=== PATIENT | male | born 1935 | race Caucasian/White ===

== ENCOUNTER 2017-12-11 00:14 | Inpatient (IN) | payer MEDICARE ==
[~2017-12-11] VITALS: Ht 179.1 cm; Wt 88.0 kg
--- NOTE | 2017-12-11 00:14 | NUR ---
[id number] FROM HOME C/O L KNEE PAIN X 1 WEEK. NOTED L KNEE SWELLING W/REDNESS AND HOT TO TOUCH. VSS NAD A/OX4 ABLE TO MAKE NEEDS KNOWN. WILL CONTINUE TO MONITOR FOR ANY CHANGES DURING THE SHIFT.
--- NOTE | 2017-12-11 00:15 | NUR ---
ER MD ENGLISH AT BEDSIDE
[2017-12-11] MEDS ORDERED: MORPHINE SULFATE INJ 4 MG/ML DISP.SYRIN ONE ×2 (01:06→01:47)
[2017-12-11] MEDS ORDERED: ONDANSETRON HCL/PF 4 MG/2 ML VIAL ONE (01:06)
[2017-12-11] MEDS ORDERED: VANCOMYCIN 1 GM VIAL ONE (01:06)
[2017-12-11] MEDS ORDERED: MORPHINE SULFATE INJ 2 MG/ML DISP.SYRIN IV ONE ×2 (01:30→02:00)
[2017-12-11] MEDS ORDERED: IV NS 0.9% 500 ML BAG IV ONE (01:30)
[2017-12-11] MEDS ORDERED: VANCOMYCIN 1 GM in IV D5W 250 ML IV ONE (01:30)
[2017-12-11] MEDS ORDERED: ONDANSETRON HCL/PF 4 MG/2 ML VIAL IVP ONE (01:30)
[2017-12-11 01:37] LABS: BASOPHILS % (AUTO) 0.3 % (0.0-2.0); EOSINOPHILS % (AUTO) 1.2 % (0.0-6.0); HEMATOCRIT 41 % (39-51); HEMOGLOBIN 13.3 g/dL (13.5-17.5); LYMPHOCYTES % (AUTO) 12.3 % (20.0-44.0); MEAN CORPUSCULAR HGB CONC 33 g/dl (31.0-36.0); MEAN CORPUSCULAR VOLUME 95 fL (80-96); NEUTROPHILS # (AUTO) 6.1 /CMM (1.8-8.9); NEUTROPHILS % (AUTO) 74.2 % (43.0-81.0); PLATELET COUNT (AUTO) 200 /CMM (150-450); RDW COEFFICIENT OF VARIATION 14.6 (11.5-15.0); RED BLOOD CELL COUNT(AUTO) 4.28 MIL/uL (4.5-6.0); WHITE BLOOD COUNT (AUTO) 8.3 K/uL (4.3-11.0)
[2017-12-11 01:39] LABS: CALCIUM, SERUM 8.7 mg/dL (8.5-10.1); CARBON DIOXIDE 30 mmol/L (21-32); CHLORIDE 104 mmol/L (98-107); CREATININE 1.2 mg/dL (0.6-1.3); GLUCOSE 128 mg/dL (74-106); POTASSIUM 4.5 mmol/L (3.5-5.1); SODIUM SERUM 139 mmol/L (136-145); UREA NITROGEN, BLOOD 25 mg/dL (7-18)
[2017-12-11 01:43] LABS: INR 0.99 (0.87-1.13)
[2017-12-11 01:46] LABS: ALANINE AMINOTRANSFERASE 31 U/L (12-78); ALBUMIN 3.1 g/dL (3.4-5.0); ALKALINE PHOSPHATASE 138 U/L (46-116); ASPARTATE AMINOTRANSFERASE 29 U/L (15-37); BILIRUBIN,DIRECT 0.1 mg/dL (0.0-0.2); BILIRUBIN,TOTAL 0.6 mg/dL (0.2-1.0); TOTAL PROTEIN, SERUM 7.5 g/dL (6.4-8.2)
--- NOTE | 2017-12-11 02:02 | NUR ---
ms bed 114.2
--- NOTE | 2017-12-11 02:13 | NUR ---
REPORT GIVEN TO AG
--- NOTE | 2017-12-11 02:15 | NUR ---
SURGICAL CODER AT BEDSIDE
[2017-12-11] MEDS ORDERED: Z GUARD REMEDY 2 OZ OINT TP PRN (02:30)
[2017-12-11] MEDS ORDERED: MAGNESIUM HYDROXIDE 30 ML UDC PO PRN (02:30)
[2017-12-11] MEDS ORDERED: MAG HYDROX/AL HYDROX/SIMETH 30 ML UDC PO PRN (02:30)
[2017-12-11] MEDS ORDERED: HYDROCODONE/APAP 5/325MG 1 EACH TABLET PO PRN (02:30)
[2017-12-11] MEDS ORDERED: ACETAMINOPHEN 325 MG TABLET PO PRN (02:30)
[2017-12-11] MEDS ORDERED: ONDANSETRON HCL/PF 4 MG/2 ML VIAL IVP PRN (02:30)
[2017-12-11] MEDS ORDERED: MORPHINE SULFATE INJ 2 MG/ML DISP.SYRIN IV PRN (02:30)
[2017-12-11] MEDS ORDERED: METO-356 PO (02:44)
[2017-12-11] MEDS ORDERED: ASPI-605 PO (02:44)
[2017-12-11] MEDS ORDERED: TAMS0.4C34 PO (02:44)
[2017-12-11] MEDS ORDERED: FENT1PAT5 TP (02:44)
[2017-12-11] MEDS ORDERED: DULO20CA PO (02:44)
[2017-12-11] MEDS ORDERED: FLUT16SP BNOSTRILS (02:44)
[2017-12-11] MEDS ORDERED: LISI-607 PO (02:44)
[2017-12-11] MEDS ORDERED: FURO-145 PO (02:44)
[2017-12-11] MEDS ORDERED: MELA3TAB PO (02:44)
[2017-12-11] MEDS ORDERED: BACL10TA PO (02:44)
[2017-12-11] MEDS ORDERED: ATOR80TA PO (02:44)
--- NOTE | 2017-12-11 03:00 | NUR ---
RN ADMITTING NOTES Received patient from ER. Patient being admitted for Dx: Cellulitis. Upon assessment, patient's L Knee is noted to be markedly Reddened and swollen and hot to touch; when compared to the R knee. Patient complains of 10/10 pain on L leg with movement, decreased ROM. Circulation and sensation intact. Orders noted and carried out. Skin assessment done, pictures taken and filed in chart. belonging's checked. Oriented patient on unit protocols. updated patient and his son, Javed, with plan of care. questions answered to best of knowledge. call light in reach.
[2017-12-11] MEDS: IV NS 0.9% 1,000 ML IV PRN ×2 (03:22→20:34)
[2017-12-11 03:30] VITALS: BP 145/93
--- NOTE | 2017-12-11 03:30 | NUR ---
RN NOTE - CODE STATUS Admitted with Son, Javed, at bedside. patient reports he has an advance directive indicating wishes to be DNI. Confirmed with Javed, who is the primary care analyst of the patient. Javed to bring a copy of the patient's advance directive. Tel #: .
[2017-12-11] MEDS ORDERED: TRAM50TA2 PO (03:55)
[2017-12-11] MEDS ORDERED: VANCOMYCIN 1 GM in IV NS 0.9% 250 ML IV SCH (04:00)
[2017-12-11 04:11] LABS: APPEARANCE,URINE CLEAR (CLEAR); BILIRUBIN,URINE NEGATIVE (NEGATIVE); BLOOD, URINE TRACE Ery/uL (NEGATIVE); COLOR,URINE YELLOW (YELLOW); KETONES,URINE NEGATIVE (NEGATIVE); LEUKOCYTE ESTERASE ,URINE NEGATIVE (NEGATIVE); NITRITE, URINE NEGATIVE (NEGATIVE); PH,URINE 5.5 (5.0-8.0); PROTEIN,URINE NEGATIVE (NEGATIVE); UGLUCOSE NEGATIVE (NEGATIVE); UROBILINOGEN,URINE 0.2 EU/dL (0.2)
[2017-12-11 04:30] LABS: BACTERIA,URINE None seen /HPF (None Seen); MUCUS,URINE Few /LPF (None Seen); SQUAMOUS EPITHELIAL CELL,UR Few /HPF (None Seen); WBC,URINE 0-2 /HPF (0-3)
[2017-12-11] MEDS ORDERED: PIPERACILLIN /TAZOBACTAM 3.375 G VIAL IV ONE (05:16)
[2017-12-11] MEDS: PIPERACILLIN /TAZOBACTAM 3.375 G in IV NS 0.9% 50 ML IV SCH ×4 (06:01→23:31)
--- NOTE | 2017-12-11 06:35 | NUR ---
RN NOTE NO DISTRESS. REMAINS ST AT 104. SLEEPING COMFORTABLY AT THIS TIME. IVF AND ATB ORDERED. NO CHANGES. CALL LIGHT IN REACH. WILL ENDORSE ACCORDINGLY FOR CONTINUITY OF CARE.
[2017-12-11] MEDS ORDERED: FEE PK DOSING 1 MIN EA MC ONE (06:49)
--- NOTE | 2017-12-11 07:00 | NUR ---
RN NOTES RECEIVED PT ON BED , A/Ox4, RESPIRATION EVEN AND UNLABORED, ON RA , NO SOB NOTED, ON TELE HR IN 110'S, ST , NS AT 75CC/HR RUNNING VIA L FA IV SITE G 18, SITE CDI, SR UP x3, CALL LIGHT WITHIN EASY REACH, BED LOCKED AND IN LOWEST POSITION , CONTINUE TO MONITOR .
[2017-12-11 08:00] VITALS: BP 111/79
[2017-12-11] MEDS: HYDROCODONE/APAP 10/325MG 1 EA TABLET PO PRN ×3 (08:05→19:52)
[2017-12-11] MEDS: ENOXAPARIN SODIUM 40 MG/0.4 ML DISP.SYRIN SQ SCH (08:05)
[2017-12-11] MEDS: DOCUSATE SODIUM 100 MG CAPSULE PO SCH ×2 (08:05→16:37)
[2017-12-11] MEDS: PANTOPRAZOLE 40 MG TABLET.DR PO SCH (08:06)
--- NOTE | 2017-12-11 12:00 | NUR ---
RN NOTES VSS STABLE , PT AT REST , CONTINUE TO MONITOR .
[2017-12-11 16:00] VITALS: BP 120/69
[2017-12-11] MEDS: LACTOBACILLUS RHAMNOSUS GG 1 EACH CAP.SPRINK PO SCH (16:38)
--- NOTE | 2017-12-11 18:19 | NUR ---
RN NOTES IVF NS AT 75CC/HR RUNNING VIA L FA IV SITE , VSS STABLE , CALL LIGHT WITHIN EASY REACH, WILL ENDOSE TO FLIGHT TEST SHOP MECHANIC NURSE FOR LINSEY .
--- NOTE | 2017-12-11 19:15 | NUR ---
COMMERCIAL ESCROW ASSISTANT OPENING NOTES RECEIVED PT IN BED, ALERT AND ORIENTED X 3, PT'S SON, DORITA AT BEDSIDE. PT NOTED WITH NO SOB, BREATHING EVEN AND UNLABORED AND IN NO ACUTE DISTRESS AT THIS TIME. PT IS RECEIVING IVF ORDERED. ALL PATIENT'S NEEDS ATTENDED TO AT THIS TIME. PLACED CALL LIGHT WITHIN EASY REACH. WILL CONTINUE TO MONITOR PT.
--- NOTE | 2017-12-11 19:25 | NUR ---
RN NOTES PATIENT IS ON TELE MONITORING WITH ST @ 111 BPM. IN NO ACUTE DISTRESS.
[2017-12-11] MEDS ORDERED: TRAMADOL HCL 50 MG TABLET PO PRN (19:30)
[2017-12-11] MEDS: VANCOMYCIN 1 GM in IV D5W 250 ML IV SCH (19:52)
[2017-12-11 20:00] VITALS: BP 121/77
[2017-12-11] MEDS: MORPHINE SULFATE INJ 4 MG/ML DISP.SYRIN IV PRN (22:31)
[2017-12-12] VITALS: BP 125/74
[2017-12-12 04:00] VITALS: BP 129/80
[2017-12-12] MEDS: PIPERACILLIN /TAZOBACTAM 3.375 G in IV NS 0.9% 50 ML IV SCH ×4 (05:18→23:49)
--- NOTE | 2017-12-12 06:39 | NUR ---
SET UP MECHANIC STAMPING MACHINES CLOSING NOTES PT IN BED, ASLEEP BUT EASILY AROUSABLE. ALERT AND ORIENTED X 4, NO SOB NOTED, BREATHING EVEN AND UNLABORED AND IN NO ACUTE DISTRESS. PT SLEPT WELL, DENIES PAIN AT THIS TIME. ON TELE MONITORING AND NOTED WITH ST @ 110s. ALL PATIENT'S NEEDS ATTENDED TO. IVF CONTINUES TO INFUSE VIA IV PERIPHERAL LINE ON LFA G#18, INFUSING WELL. PLACED CALL LIGHT WITHIN EASY REACH. BED IN LOW POSITION AND LOCKED IN PLACE. WILL ENDORSE TO AM SHIFT NURSE FOR CONTINUITY OF CARE.
[2017-12-12] MEDS: PANTOPRAZOLE 40 MG TABLET.DR PO SCH (06:41)
--- NOTE | 2017-12-12 07:00 | NUR ---
CHARGE PREPARATION TECHNICIAN INITIAL NOTES RECEIVED PT FROM PM NURSE, PT RESTING IN BED ASLEEP, A&O X4 SLOVENIAN SPEAKING, ON RA SAT ABOVE 94%, NO SOB OR ACUTE DISTRESS, ON TELE WED ST WITH HR 110, LT FA 18 G IV RUNNING NS @ 75 ML/HR NO INFILTRATION NOTED, ALL SAFETY MEASURES INITIATED, WILL CONTINUE TO MONITOR.
[2017-12-12 07:02] LABS: BASOPHILS % (AUTO) 0.7 % (0.0-2.0); EOSINOPHILS % (AUTO) 4.4 % (0.0-6.0); HEMATOCRIT 35 % (39-51); HEMOGLOBIN 11.9 g/dL (13.5-17.5); LYMPHOCYTES % (AUTO) 17.2 % (20.0-44.0); MEAN CORPUSCULAR HGB CONC 34 g/dl (31.0-36.0); MEAN CORPUSCULAR VOLUME 95 fL (80-96); MONOCYTES # (AUTO) 0.8 /CMM (0.1-1.30); MONOCYTES % (AUTO) 12.8 % (2.0-12.0); NEUTROPHILS # (AUTO) 3.9 /CMM (1.8-8.9); NEUTROPHILS % (AUTO) 64.9 % (43.0-81.0); PLATELET COUNT (AUTO) 187 /CMM (150-450); RDW COEFFICIENT OF VARIATION 14.9 (11.5-15.0); RED BLOOD CELL COUNT(AUTO) 3.68 MIL/uL (4.5-6.0)
[2017-12-12 07:17] LABS: CALCIUM, SERUM 8.2 mg/dL (8.5-10.1); CARBON DIOXIDE 27 mmol/L (21-32); CHLORIDE 108 mmol/L (98-107); CREATININE 1.2 mg/dL (0.6-1.3); GLUCOSE 118 mg/dL (74-106); MAGNESIUM 1.8 mg/dL (1.8-2.4); PHOSPHORUS 4.2 mg/dL (2.5-4.9); POTASSIUM 4.6 mmol/L (3.5-5.1); SODIUM SERUM 142 mmol/L (136-145); UREA NITROGEN, BLOOD 24 mg/dL (7-18)
[2017-12-12 07:25] LABS: CHOLESTEROL 105 mg/dL (<200); HDL CHOLESTEROL 48 mg/dL (40-60); LDL 48 mg/dL (0-99); THYROID STIMULATING HORMONE 3.078 uIU/mL (0.358-3.74); TRIGLYCERIDES 57 mg/dL (30-150)
[2017-12-12 08:00] VITALS: BP 148/95
[2017-12-12] MEDS: BACLOFEN (10 MG) 10 MG TABLET PO SCH ×3 (09:00→16:08)
[2017-12-12] MEDS: FLUTICASONE PROPIONATE 16 GM BOTTLE NS SCH (09:05)
[2017-12-12] MEDS: ENOXAPARIN SODIUM 40 MG/0.4 ML DISP.SYRIN SQ SCH (09:06)
[2017-12-12] MEDS: LACTOBACILLUS RHAMNOSUS GG 1 EACH CAP.SPRINK PO SCH ×2 (09:06→16:59)
[2017-12-12] MEDS: DULOXETINE HCL 20 MG CAPSULE.DR PO SCH (09:07)
[2017-12-12] MEDS: TAMSULOSIN 0.4 MG CAP.SR.24H PO SCH (09:07)
[2017-12-12] MEDS: ASPIRIN EC 81 MG TABLET.DR PO SCH (09:07)
[2017-12-12] MEDS: DOCUSATE SODIUM 100 MG CAPSULE PO SCH ×2 (09:07→16:59)
[2017-12-12] MEDS: LISINOPRIL (5MG) 5 MG TABLET PO SCH (09:08)
[2017-12-12] MEDS: METOPROLOL SUCCINATE 25 MG TAB.SR.24H PO SCH (09:08)
--- NOTE | 2017-12-12 10:16 | NUR ---
BRUSHER WARP NOTES SPOKE WITH DR MAYNARD AND STATED NO NEED FOR WOUND CONSULT SINCE LT KNEE HAS NO DRAINAGE, WILL CONTINUE CARE.
[2017-12-12 12:00] VITALS: BP 146/87
[2017-12-12] MEDS: VANCOMYCIN 1 GM in IV D5W 250 ML IV SCH (14:24)
[2017-12-12 16:00] VITALS: BP 120/75
--- NOTE | 2017-12-12 18:43 | NUR ---
DRAFTER MARINE ENDING NOTES PT RESTING IN BED, NO ACUTE CHANGES NOTED, STATED PAIN 4/10 AND MANAGEABLE, NO DESIRE FOR PAIN MEDS, ON TELE WED ST, USES BED SIDE COMMODE AND URINAL, ABLE TO SIT UP IN BED, IV SITE INTACT NO INFILTRATION NOTED. ALL SAFETY MEASURES INITIATED, BED BATH PROVIDED,ALL DUE MEDS GIVEN, WILL ENDORSE TO PM NURSE.
[2017-12-12] MEDS: HYDROCODONE/APAP 10/325MG 1 EA TABLET PO PRN (19:47)
[2017-12-12 20:00] VITALS: BP 143/76
[2017-12-12] MEDS: MORPHINE SULFATE INJ 4 MG/ML DISP.SYRIN IV PRN (23:55)
[2017-12-13] VITALS (8 sets, daily range): BP systolic 123–154; BP diastolic 53–88
[2017-12-13] MEDS: PIPERACILLIN /TAZOBACTAM 3.375 G in IV NS 0.9% 50 ML IV SCH ×2 (05:12→12:56)
--- NOTE | 2017-12-13 07:15 | NUR ---
FORMULA WEIGHER INITIAL NOTES RECEIVED REPORT AND PT FROM PM NURSE. PT RESTING IN BED WITH NO S/S OF ACUTE DISTRESS OR SOB AT THIS TIME, A&O X4 PORTUGUESE SPEAKING, ON RA SAT ABOVE 94%, PAIN 5/10 TOLERABLE AT THIS TIME, ON TELE Wed WITH HR 110, LT FA 18G IV PATENT AND INTACT NO INFILTRATION NOTED, ALL SAFETY MEASURES INITIATED, WILL CONTINUE TO MONITOR.
--- NOTE | 2017-12-13 07:16 | NUR ---
RN NOTE PATIENT RESTED WELL AT NIGHT, PAIN IS WELL MANAGED WITH THE PAIN MEDICATIONS, NO DISTRESS NOTED, ON ROOM AIR, ALL SAFETY MEASURES TAKEN, WILL ENDORSE TO AM SHIFT FOR LINSEY
[2017-12-13 07:48] LABS: CALCIUM, SERUM 8.9 mg/dL (8.5-10.1); CARBON DIOXIDE 30 mmol/L (21-32); CHLORIDE 107 mmol/L (98-107); CREATININE 1.3 mg/dL (0.6-1.3); GLUCOSE 116 mg/dL (74-106); POTASSIUM 4.1 mmol/L (3.5-5.1); SODIUM SERUM 144 mmol/L (136-145); UREA NITROGEN, BLOOD 21 mg/dL (7-18)
[2017-12-13] MEDS: BACLOFEN (10 MG) 10 MG TABLET PO SCH ×3 (08:17→17:00)
[2017-12-13] MEDS: DOCUSATE SODIUM 100 MG CAPSULE PO SCH ×2 (08:55→17:14)
[2017-12-13] MEDS: PANTOPRAZOLE 40 MG TABLET.DR PO SCH (08:55)
[2017-12-13] MEDS: ASPIRIN EC 81 MG TABLET.DR PO SCH (08:55)
[2017-12-13] MEDS: FLUTICASONE PROPIONATE 16 GM BOTTLE NS SCH (08:55)
[2017-12-13] MEDS: VANCOMYCIN 1 GM in IV D5W 250 ML IV SCH ×2 (08:56→20:36)
[2017-12-13] MEDS: TAMSULOSIN 0.4 MG CAP.SR.24H PO SCH (08:56)
[2017-12-13] MEDS: LISINOPRIL (5MG) 5 MG TABLET PO SCH (08:56)
[2017-12-13] MEDS: DULOXETINE HCL 20 MG CAPSULE.DR PO SCH (08:56)
[2017-12-13] MEDS: LACTOBACILLUS RHAMNOSUS GG 1 EACH CAP.SPRINK PO SCH ×2 (08:56→17:14)
[2017-12-13] MEDS: METOPROLOL SUCCINATE 25 MG TAB.SR.24H PO SCH (08:56)
[2017-12-13] MEDS: ENOXAPARIN SODIUM 40 MG/0.4 ML DISP.SYRIN SQ SCH (08:57)
--- NOTE | 2017-12-13 09:03 | NUR ---
WOUND CARE CONSULT: PT PRESENTS WITH LEFT MEDIAL KNEE RESOLVING REDNESS, BRUISING TO RT BUTTOCK, RASH TO BILATERAL ABDOMINAL FOLDS, PRESENT ON ADMISSION. PT ALSO NOTED TO HAVE VERY SENSITIVE, FAIR SKIN WITH SOME REDNESS TO BACK AND SOME SKIN TAGS AND LESIONS. ALL SKIN PROTECTION AND RASH CARE RECOMMENDATIONS DISCUSSED WITH NURSING STAFF. DEFER TO MD FOR LEFT MEDIAL KNEE REDNESS. PT STATES LEFT KNEE REDNESS IS MUCH BETTER THAN WHEN HE CAME IN TO HOSPITAL. PT IS INDEPENDENT WITH BED MOBILITY AND IS CONTINENT. PER NURSING STAFF, PT GETS UP WITH ASSISTANCE TO COMMODE. WILL SEE JATINDER. IN AGREEMENT WITH PLAN OF CARE. Addendum: 12/13/17 at 0906 by JEREMIAH CAMPBELL WNDNU Amended: Links added.
--- NOTE | 2017-12-13 09:32 | NUR ---
WEB PORTAL DEVELOPER NOTES PT DOING PT WITH PHYSICAL THERAPIST, PT DOING WELL, HR REACHED 170 ON TELE MON, PT WAS STOPPED AND PT BACK IN BED, PT IS DOING WELL, NO CHEST PAIN NOTED, PT RESTING IN BED, ALL SAFETY MEASURES INITIATED.
--- NOTE | 2017-12-13 10:00 | NUR ---
COIL MACHINE OPERATOR NOTES PTS IV LT FA INFILTRATED, INSERTED NEW IV RT WRIST 22G IV INTACT AND PATENT.
[2017-12-13] MEDS: CLOTRIMAZOLE 1% 15 GM TUBE TP SCH ×2 (10:52→17:15)
--- NOTE | 2017-12-13 18:54 | NUR ---
2ND GRADE TEACHER ENDING NOTES PT RESTING IN BED, NO ACUTE CHANGES NOTED, ALL DUE MEDS GIVEN, PT STATES PAIN 4/10 DOES NOT WANT PAIN MEDS AT THIS TIME, WILL ENDORSE TO PM NURSE.
[2017-12-13] MEDS: HYDROCODONE/APAP 10/325MG 1 EA TABLET PO PRN (21:00)
[2017-12-14] VITALS: BP 137/86
[2017-12-14 04:00] VITALS: BP 125/86
[2017-12-14 07:19] LABS: CALCIUM, SERUM 8.8 mg/dL (8.5-10.1); CARBON DIOXIDE 28 mmol/L (21-32); CHLORIDE 107 mmol/L (98-107); CREATININE 1.1 mg/dL (0.6-1.3); GLUCOSE 108 mg/dL (74-106); POTASSIUM 4.1 mmol/L (3.5-5.1); SODIUM SERUM 144 mmol/L (136-145); UREA NITROGEN, BLOOD 19 mg/dL (7-18)
--- NOTE | 2017-12-14 07:24 | NUR ---
RN NOTE PATIENT RESTED WELL AT NIGHT, PAIN IS WELL CONTROLLED WITH PAIN MEDICATION, NO DISTRESS NOTED, ALL SAFETY MEASURES TAKEN, ENDORSED TO AM SHIFT FOR LINSEY
--- NOTE | 2017-12-14 07:39 | NUR ---
RAILCAR MECHANIC NOTE PATIENT IN BED, RESTING COMFORTABLY AT THIS TIME , ON RA ,NO SOB NOTED , ON TELE MONITOR ST 109. ,RT WRIST HL INTACT , BED ON LOWEST AND LOCKED POSITION , CALL LIGHT WITHIN REACH , WILL CONT TO MONITOR CLOSELY
[2017-12-14] MEDS: PANTOPRAZOLE 40 MG TABLET.DR PO SCH (07:48)
[2017-12-14] MEDS: VANCOMYCIN 1 GM in IV D5W 250 ML IV SCH (07:48)
[2017-12-14 08:00] VITALS: BP 162/108
[2017-12-14] MEDS: ENOXAPARIN SODIUM 40 MG/0.4 ML DISP.SYRIN SQ SCH (08:09)
[2017-12-14] MEDS: FLUTICASONE PROPIONATE 16 GM BOTTLE NS SCH (08:10)
[2017-12-14] MEDS: BACLOFEN (10 MG) 10 MG TABLET PO SCH ×2 (08:11→12:17)
[2017-12-14] MEDS: TAMSULOSIN 0.4 MG CAP.SR.24H PO SCH (08:11)
[2017-12-14] MEDS: DOCUSATE SODIUM 100 MG CAPSULE PO SCH (08:11)
[2017-12-14] MEDS: DULOXETINE HCL 20 MG CAPSULE.DR PO SCH (08:12)
[2017-12-14] MEDS: ASPIRIN EC 81 MG TABLET.DR PO SCH (08:12)
[2017-12-14] MEDS: METOPROLOL SUCCINATE 25 MG TAB.SR.24H PO SCH (08:13)
[2017-12-14] MEDS: LISINOPRIL (5MG) 5 MG TABLET PO SCH (08:13)
[2017-12-14] MEDS: CLOTRIMAZOLE 1% 15 GM TUBE TP SCH (08:15)
[2017-12-14] MEDS: LACTOBACILLUS RHAMNOSUS GG 1 EACH CAP.SPRINK PO SCH (09:24)
--- NOTE | 2017-12-14 10:30 | NUR ---
STONE OPERATOR NOTE SEEN BY DR PAULO RAMIRES TO DISCHARGE HOME ,
[2017-12-14 12:00] VITALS: BP 139/76
[2017-12-14] MEDS ORDERED: CEPH-570 PO (12:18)
--- NOTE | 2017-12-14 12:21 | NUR ---
DATA COLLECTOR NOTE SPOKE WITH COMMUNITY HEALTH ADVISOR HAROON NOTIFIED THAT PATIENT WANTS TO GO HOME OR VIA HOSPAL. WILL F\U
--- NOTE | 2017-12-14 14:33 | NUR ---
SENIOR CONTROLS ANALYST NOTE DISCHARGE INSTRUCTION GIVEN , PX F GIVEN , AND POSSIBLE SIDE EFFECTS EXPLAINED , HL REMOVED ,NO S]S INFECTION, INSTRUCTED TO FOLLOW UP WITH PRIMARY CARE DOCTOR BELONGING SIGNED ,
[2017-12-14 16:00] VITALS: BP 135/87
--- NOTE | 2017-12-14 16:03 | NUR ---
CHEMICAL LABORATORY ASSISTANT NOTE TELE REMOVED, SON AT BEDSIDE ,TAKEN TO LOBBY BY STUFF ON W\C , ALL D\C INSTRUCTING GIVEN TO TO PATIENT AND SON , WENT HOME WITH STABLE CONDITION
== END 2017-12-14 16:10 | disposition home or self-care (01) | DRG 602 ==
LOC: ER 00:16 → MEDSG1 02:20 → TELE1 03:09
PROVIDERS: ADMIT Registered Nurse; ATTEND Internal Medicine
DX: L03.116 Cellulitis of left lower limb (principal); N17.0 Acute kidney failure with tubular necrosis; E44.0 Moderate protein-calorie malnutrition; I25.10 Atherosclerotic heart disease of native coronary artery without angina pectoris; Z95.1 Presence of aortocoronary bypass graft; Z87.442 Personal history of urinary calculi; N40.0 Benign prostatic hyperplasia without lower urinary tract symptoms; I10 Essential (primary) hypertension; M19.90 Unspecified osteoarthritis, unspecified site; D63.8 Anemia in other chronic diseases classified elsewhere; Z96.653 Presence of artificial knee joint, bilateral; Z96.612 Presence of left artificial shoulder joint; Z96.611 Presence of right artificial shoulder joint; Z98.890 Other specified postprocedural states; Z66 Do not resuscitate
CPT/HCPCS: 36415; 71045-TC; 73560-TC; 80048-TC; 80061-TC; 80076-TC; 80202-TC; 81000-TC; 83605-TC; 83735-TC; 84100-TC; 84443-TC; 84484-TC; 85025-TC; 85730-TC; 87040-TC; 87081-TC; 93971-TC; A4216; A4606; J1650; J2270; J2405; J2543; J3370; J7030; J7040; J7050; J7060; Z7610